=== PATIENT | female | born 1995 | race Caucasian/White ===

== ENCOUNTER 2016-04-19 16:27 | Emergency (ER) | payer OTHER ==
[2016-04-19 16:21] LABS: INFLUENZA A NEG (NEG); INFLUENZA B NEG (NEG)
[~2016-04-19 16:27] MED LIST: K-DUR20 ME1 PO; NO MEDICATIONS; NUPRIN200 M1 PO; ZOFRAN ODT4 MG PO
== END 2016-04-19 16:40 | disposition home or self-care (01) ==
LOC: CFTX 16:27
PROVIDERS: Physician Assistant
DX: B34.9 Viral infection, unspecified (principal); F17.210 Nicotine dependence, cigarettes, uncomplicated
CPT/HCPCS: 87651; 87804; 99282

== ENCOUNTER 2016-07-08 13:23 | Emergency (ER) | payer OTHER | END 2016-07-08 16:24 | disposition home or self-care (01) | LOC: CFTX 13:23 → CED 13:23 → CFTX 15:44 | DX: J02.9 Acute pharyngitis, unspecified (principal); J06.9 Acute upper respiratory infection, unspecified; J45.909 Unspecified asthma, uncomplicated; F17.210 Nicotine dependence, cigarettes, uncomplicated; Z88.8 Allergy status to other drugs, medicaments and biological substances; Z91.013 Allergy to seafood | CPT/HCPCS: 87651; 99283 ==

== ENCOUNTER 2016-07-28 16:34 | Emergency (ER) | payer OTHER | END 2016-07-28 17:30 | disposition left against medical advice (07) | LOC: CED 16:34 | DX: Z53.21 Procedure and treatment not carried out due to patient leaving prior to being seen by health care provider (principal) ==